=== PATIENT | female | born 1995 | race Two or more races ===

== ENCOUNTER 2021-12-13 19:39 | Emergency (ER) | payer MEDICAID, OTHER ==
[~2021-12-13] VITALS: Ht 170.2 cm; Wt 61.4 kg
[~2021-12-13 19:39] MED LIST: PREN-96 PO
[2021-12-13 20:35] VITALS: BP 107/71
== END 2021-12-13 21:27 | disposition home or self-care (01) ==
LOC: ER 19:41
DX: M54.2 Cervicalgia (principal); Z90.49 Acquired absence of other specified parts of digestive tract; Z79.899 Other long term (current) drug therapy; Z91.040 Latex allergy status